=== PATIENT | male | born 1995 | race American Indian/Alaskan Native ===

== ENCOUNTER 2020-01-18 11:16 | Emergency (ER) | payer SELFPAY ==
[2020-01-18 11:26] VITALS: BP 134/74
--- NOTE | 2020-01-18 11:51 | XRay Report ---
CHEST 2 VIEWS INDICATION / CLINICAL INFORMATION: Cough and fever for one day. COMPARISON: None available. FINDINGS: SUPPORT DEVICES: None. HEART / MEDIASTINUM: No significant abnormality. LUNGS / PLEURA: No significant pulmonary or pleural abnormality. No pneumothorax. ADDITIONAL FINDINGS: No significant additional findings. IMPRESSION: 1. No acute abnormality of the chest. Signer Name: Chilango Colorado MD Signed: 01/18/2020 11:47 AM Workstation Name: [id number]
--- NOTE | 2020-01-18 13:12 | Emergency Department Report ---
- General Chief Complaint: Upper Respiratory Infection Stated Complaint: SOB/FEVER/COUGHING Time Seen by Provider: 01/18/20 12:09 Source: patient Mode of arrival: Ambulatory Limitations: No Limitations - History of Present Illness Initial Comments: 24-year-old -[place] male smoker presents emergency department complaining of a couple day history of cough congestion coryza with some aches and pains and nausea. Reports no hemoptysis no hematemesis no hematochezia. No palpitations or or rash. Reports no known sick contacts with the coronavirus and nor has he had any travel to any of the domestic locations in the besides [place]. No foreign travel. MD Complaint: cough, rhinorrhea, nasal congestion -: Gradual Severity: mild Quality: dull Consistency: constant Associated Symptoms: rhinorrhea, cough, nausea. denies: right sweats, epistaxis, hoarseness - Related Data Previous Rx's Medication Instructions Recorded Last Taken Type Azithromycin [Zithromax TAB] 500 mg PO QDAY #3 tablet 01/18/20 Unknown Rx Benzonatate [Tessalon Perles] 100 mg PO Q8HR #20 capsule 01/18/20 Unknown Rx Allergies Allergy/AdvReac Type Severity Reaction Status Date / Time No Known Allergies Allergy Unverified 01/18/20 11:24 ED Review of Systems ROS: Stated complaint: SOB/FEVER/COUGHING Other details as noted in HPI Comment: All other systems reviewed and negative ED Past Medical Hx - Past Medical History Previous Medical History?: No - Surgical History Past Surgical History?: No - Social History Smoking Status: Current Every Day Smoker Substance Use Type: None, Alcohol, Marijuana - Medications Home Medications: Home Medications Medication Instructions Recorded Confirmed Last Taken Type Azithromycin [Zithromax TAB] 500 mg PO QDAY #3 tablet 01/18/20 Unknown Rx Benzonatate [Tessalon Perles] 100 mg PO Q8HR #20 capsule 01/18/20 Unknown Rx ED Physical Exam - General Limitations: No Limitations General appearance: alert, in no apparent distress - Head Head exam: Present: atraumatic, normocephalic - Eye Eye exam: Present: normal appearance, PERRL, EOMI Pupils: Present: normal accommodation - ENT ENT exam: Present: mucous membranes moist - Neck Neck exam: Present: normal inspection, full ROM - Respiratory Respiratory exam: Present: normal lung sounds bilaterally. Absent: respiratory distress, wheezes, rales, chest wall tenderness, accessory muscle use - Cardiovascular Cardiovascular Exam: Present: regular rate, normal rhythm. Absent: systolic murmur, diastolic murmur, rubs, gallop - GI/Abdominal GI/Abdominal exam: Present: soft, normal bowel sounds - Rectal Rectal exam: Present: deferred - Extremities Exam Extremities exam: Present: normal inspection, normal capillary refill - Back Exam Back exam: Present: normal inspection. Absent: CVA tenderness (R), CVA tenderness (L) - Neurological Exam Neurological exam: Present: alert, oriented X3, CN II-XII intact - Psychiatric Psychiatric exam: Present: normal affect, normal mood - Skin Skin exam: Present: warm, dry, intact, normal color. Absent: rash ED Course Vital Signs 01/18/20 11:24 Temperature 100.3 F H Pulse Rate 102 H Respiratory 20 Rate Blood Pressure 134/74 O2 Sat by Pulse 97 Oximetry ED Medical Decision Making - Radiology Data Radiology results: [place] [address] XRay Report Signed Patient: REECE KELLER MR#: [id number] : 1995 Acct:[id number] Age/Sex: 24 / M ADM Date: 01/18/20 Loc: ED Attending Dr: Ordering Physician: VLADIMIR WEST Date of Service: 01/18/20 Procedure(s): XR chest routine 2V Accession Number(s): [id number] cc: VLADIMIR WEST Fluoro Time In Minutes: CHEST 2 VIEWS INDICATION / CLINICAL INFORMATION: Cough and fever for one day. COMPARISON: None available. FINDINGS: SUPPORT DEVICES: None. HEART / MEDIASTINUM: No significant abnormality. LUNGS / PLEURA: No significant pulmonary or pleural abnormality. No pneumothorax. ADDITIONAL FINDINGS: No significant additional findings. IMPRESSION: 1. No acute abnormality of the chest. Signer Name: Chilango Colorado MD Signed: 01/18/2020 11:47 AM Workstation Name: [id number] Transcribed By: IRAIS Dictated By: Chilango Colorado MD Electronically Authenticated By: Chilango Colorado MD Signed Date/Time: 01/18/20 1147 DD/ 1145 TD/TT: - Medical Decision Making This patient presents with lower respiratory symptoms concerning for viral syndrome including flu. Patient does not meet criteria for COVID-19. Doubt pneumonia, sepsis or other serious bacterial infection or acute emergent condition. Is otherwise well- appearing with acceptable vitals and reassuring physical examination and is safe to be discharged home. Patient lacks serious medical comorbidities that would require admission. Patient is nontoxic and although symptomatic otherwise safe to go home. Will provide strict return precautions and instructions on self isolation/quarantine and anticipatory guidance. Critical care attestation.: If time is entered above; I have spent that time in minutes in the direct care of this critically ill patient, excluding procedure time. ED Disposition Clinical Impression: Bronchitis Disposition: DC-01 TO HOME OR SELFCARE Is pt being admited?: No Does the pt Need Aspirin: No Condition: Stable Instructions: Chronic Bronchitis (ED), Acute Bronchitis (ED) Prescriptions: Benzonatate [Tessalon Perles] 100 mg PO Q8HR #20 capsule Azithromycin [Zithromax TAB] 500 mg PO QDAY #3 tablet Referrals: PRIMARY CARE, [Primary Care Provider] - 3-5 Days [facility] [Provider Group] - 3-5 Days
== END 2020-01-18 13:22 | disposition home or self-care (01) ==
LOC: ED 11:16
DX: J40 Bronchitis, not specified as acute or chronic (principal); F17.200 Nicotine dependence, unspecified, uncomplicated; F12.10 Cannabis abuse, uncomplicated; Z79.2 Long term (current) use of antibiotics; Z79.899 Other long term (current) drug therapy
CPT/HCPCS: 71046